=== PATIENT | female | born 1995 | race African-American/Black ===

== ENCOUNTER → 2016-10-01 | Outpatient (CLI) | payer BC ==
--- NOTE | 2016-10-01 14:45 | DIAGNOSTIC IMAGING REPORT ---
Venous Doppler left leg LEFT VENOUS DOPP LOWER EXT UNILAT CLINICAL HISTORY: PAIN IN LEFT LEG, ELEVATE D DIMER, R/O DVT pain. Edema. TECHNIQUE: Venous Doppler COMPARISON STUDY: None FINDINGS: Normal study IMPRESSION: Normal venous Doppler left leg Electronically signed by: Ang Montana M.D. 10/01/2016 2:44 PM Dictated Date/Time: 10/01/2016 2:43 PM
== END | disposition home or self-care (01) ==
LOC: C.ULTRBC 14:14
PROVIDERS: ATTEND Physician Assistant
DX: M79.605 Pain in left leg (principal)